=== PATIENT | female | born 1930 | race Caucasian/White ===

== ENCOUNTER 2016-05-15 19:31 | Inpatient (IN) | payer OTHER, MEDICAID ==
[~2016-05-15] VITALS: Ht 149.9 cm; Wt 65.3 kg
[2016-05-15 20:30] VITALS: BP 109/62
[2016-05-15] MEDS ORDERED: LATA2.5D2 EACHEYE (21:56)
[2016-05-15] MEDS ORDERED: FLUO-120 PO (21:58)
[2016-05-15] MEDS ORDERED: QUET25TA PO (21:59)
[2016-05-15] MEDS ORDERED: LORAZEPAM 0.5 MG TABLET PO PRN (22:00)
[2016-05-15] MEDS ORDERED: ACETAMINOPHEN 325 MG TABLET PO PRN (22:00)
[2016-05-15] MEDS ORDERED: MAGNESIUM HYDROXIDE 30 ML UDC PO PRN (22:00)
[2016-05-15] MEDS ORDERED: MAG HYDROX/AL HYDROX/SIMETH 30 ML UDC PO PRN (22:00)
[2016-05-15] MEDS ORDERED: LEVO50TA PO (22:02)
[2016-05-15] MEDS ORDERED: DONE5TAB34 PO (22:04)
[2016-05-15] MEDS ORDERED: MEMA10TA PO (22:04)
[2016-05-16 08:00] VITALS: BP 128/60
[2016-05-16 10:59] LABS: BASOPHILS % (AUTO) 0.3 % (0.0-2.0); DIFF TOTAL % 100 %; EOSINOPHILS % (AUTO) 0.4 % (0.0-6.0); HEMATOCRIT 42 % (33-45); HEMOGLOBIN 13.4 g/dL (11.5-14.8); LYMPHOCYTES # (AUTO) 1.4 /CMM (0.8-4.8); LYMPHOCYTES % (AUTO) 14.7 % (20.0-44.0); MEAN CORPUSCULAR HEMOGLOBIN 31 PG (26.0-33.0); MEAN CORPUSCULAR HGB CONC 32 g/dl (31.0-36.0); MEAN CORPUSCULAR VOLUME 95 fL (82-100); MONOCYTES # (AUTO) 0.6 /CMM (0.1-1.30); NEUTROPHILS # (AUTO) 7.6 /CMM (1.8-8.9); NEUTROPHILS % (AUTO) 78.6 % (43.0-81.0); PLATELET COUNT (AUTO) 348 /CMM (150-450); RED BLOOD CELL COUNT(AUTO) 4.38 MIL/uL (4.0-5.2); WHITE BLOOD COUNT (AUTO) 9.6 K/uL (4.3-11.0)
[2016-05-16 11:23] LABS: ALBUMIN 3.4 g/dL (3.4-5.0); BILIRUBIN,TOTAL 0.4 mg/dL (0.2-1.0); CALCIUM, SERUM 9.3 mg/dL (8.5-10.1); CREATININE 1.1 mg/dL (0.6-1.3); POTASSIUM 3.9 mmol/L (3.5-5.1); TOTAL PROTEIN, SERUM 7.5 g/dL (6.4-8.2)
[2016-05-16 16:15] VITALS: BP 100/56
[2016-05-16] MEDS: DIVALPROEX SODIUM 125 MG CAP.SPRINK PO SCH (17:53)
[2016-05-16 20:00] VITALS: BP 127/57
[2016-05-16] MEDS: LATANOPROST EYE DROP 0.005% 2.5 ML BOTTLE EACHEYE SCH (21:46)
[2016-05-16] MEDS: QUETIAPINE FUMARATE 25 MG TABLET PO SCH (21:47)
[2016-05-16] MEDS: TEMAZEPAM 7.5 MG CAPSULE PO PRN (21:50)
[2016-05-17] MEDS ORDERED: Z GUARD REMEDY 4 OZ OINT TP ONE (00:25)
[2016-05-17] MEDS: LEVOTHYROXINE SODIUM 50 MCG TABLET PO SCH (07:30)
[2016-05-17 08:00] VITALS: BP 158/79
[2016-05-17] MEDS: DIVALPROEX SODIUM 125 MG CAP.SPRINK PO SCH ×3 (09:00→17:46)
[2016-05-17] MEDS ORDERED: FLUOXETINE HCL 20 MG CAPSULE PO SCH (09:00)
[2016-05-17] MEDS: FLUOXETINE HCL 20 MG CAPSULE PO SCH (09:05)
[2016-05-17] MEDS: MEMANTINE HCL 5 MG TABLET PO SCH ×2 (09:05→17:46)
[2016-05-17] MEDS: DONEPEZIL 5 MG TABLET PO SCH (09:05)
[2016-05-17 16:00] VITALS: BP 114/69
[2016-05-17 20:11] VITALS: BP 113/68
[2016-05-17 20:12] VITALS: BP 118/73
[2016-05-17] MEDS: QUETIAPINE FUMARATE 25 MG TABLET PO SCH (21:24)
[2016-05-17] MEDS: LATANOPROST EYE DROP 0.005% 2.5 ML BOTTLE EACHEYE SCH (21:25)
[2016-05-18] MEDS: LEVOTHYROXINE SODIUM 50 MCG TABLET PO SCH (07:30)
[2016-05-18 08:05] VITALS: BP 153/68
[2016-05-18] MEDS: FLUOXETINE HCL 20 MG CAPSULE PO SCH (09:15)
[2016-05-18] MEDS: MEMANTINE HCL 5 MG TABLET PO SCH ×2 (09:15→16:22)
[2016-05-18] MEDS: DONEPEZIL 5 MG TABLET PO SCH (09:15)
[2016-05-18] MEDS: DIVALPROEX SODIUM 125 MG CAP.SPRINK PO SCH ×3 (09:16→16:22)
[2016-05-18 16:00] VITALS: BP 100/49
[2016-05-18 19:59] VITALS: BP 112/57
[2016-05-18] MEDS: QUETIAPINE FUMARATE 25 MG TABLET PO SCH (21:24)
[2016-05-18] MEDS: TEMAZEPAM 7.5 MG CAPSULE PO PRN (21:25)
[2016-05-18] MEDS: LATANOPROST EYE DROP 0.005% 2.5 ML BOTTLE EACHEYE SCH (22:00)
[2016-05-19 09:05] VITALS: BP 100/55
[2016-05-19] MEDS: DIVALPROEX SODIUM 125 MG CAP.SPRINK PO SCH ×2 (09:05→12:31)
[2016-05-19] MEDS: MEMANTINE HCL 5 MG TABLET PO SCH (09:05)
[2016-05-19] MEDS: LEVOTHYROXINE SODIUM 50 MCG TABLET PO SCH (09:05)
[2016-05-19] MEDS: DONEPEZIL 5 MG TABLET PO SCH (09:05)
[2016-05-19] MEDS: FLUOXETINE HCL 20 MG CAPSULE PO SCH (09:05)
== END 2016-05-19 13:35 | disposition home or self-care (01) | DRG 885 ==
LOC: ER 19:32 → GPS 20:29
PROVIDERS: ADMIT Psychiatry & Neurology Psychiatry; ATTEND Nurse Practitioner Acute Care
DX: F29 Unspecified psychosis not due to a substance or known physiological condition (principal); F03.91 Unspecified dementia, unspecified severity, with behavioral disturbance; Z74.09 Other reduced mobility; E03.9 Hypothyroidism, unspecified; H40.9 Unspecified glaucoma; R73.9 Hyperglycemia, unspecified; F32.9 Major depressive disorder, single episode, unspecified
CPT/HCPCS: 36415; 80053-TC; 80061-TC; 85025-TC; 97001-TC; A4606; Z7610